=== PATIENT | male | born 1955 ===

== ENCOUNTER 2016-09-12 09:38 | Emergency (ER) | payer OTHER ==
[2016-09-12 09:46] VITALS: PULSE 62; RESP 20; TEMP 98; O2SAT 97
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
[2016-09-12 11:15] VITALS: BP 160/79
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
== END 2016-09-12 11:15 | disposition home or self-care (01) ==
LOC: C.ER 09:38
DX: S13.4XXA Sprain of ligaments of cervical spine, initial encounter (principal); V49.49XA Driver injured in collision with other motor vehicles in traffic accident, initial encounter; Y92.410 Unspecified street and highway as the place of occurrence of the external cause; M54.9 Dorsalgia, unspecified